=== PATIENT | female | born 1975 | race Caucasian/White ===

== ENCOUNTER → 2017-10-26 | Outpatient (CLI) | payer BC, OTHER ==
[2016-03-21 01:55] VITALS: BP 113/72
--- NOTE | 2017-10-26 11:03 | RAD ---
Examination: Left hip, two views History: Left hip pain Comparison reference: 03/28/2014 Findings: There is no evidence for fracture, significant arthropathy, bone destruction or periarticul ar calcification. The femoral head is in normal position. Impression: No significant abnormality demonstrated. Reported By:
--- NOTE | 2017-10-26 14:48 | RAD ---
Indication: Pain Exam: Left shoulder series Technique: AP and axillary views . Findings: The glenohumeral joint is intact. No fracture or dislocation is seen. There are mild hypert rophic changes of the AC joint. The soft tissues are normal. Impression: Mild hypertrophic changes of the AC joint with no acute abnormality seen. Reported By:
== END ==
LOC: RAD 08:44
PROVIDERS: ATTEND Nurse Practitioner Family
DX: M25.552 Pain in left hip (principal); M19.012 Primary osteoarthritis, left shoulder
CPT/HCPCS: 73030; 73501